=== PATIENT | female | born 1970 | race Two or more races ===

== ENCOUNTER 2021-02-05 19:53 | Emergency (ER) | payer BC, OTHER ==
[~2021-02-05] VITALS: Ht 149.9 cm; Wt 59.9 kg
[2021-02-05] MEDS ORDERED: ACETAMINOPHEN 500 MG TAB PO ONE (20:30)
[2021-02-05 20:40] VITALS: BP 143/58
== END 2021-02-05 21:10 | disposition home or self-care (01) ==
LOC: EEVIPCON 19:53 → ER 19:53
DX: S09.90XA Unspecified injury of head, initial encounter (principal); Z90.49 Acquired absence of other specified parts of digestive tract; Z90.710 Acquired absence of both cervix and uterus; Z87.891 Personal history of nicotine dependence; Y08.89XA Assault by other specified means, initial encounter; Y93.89 Activity, other specified; Y92.89 Other specified places as the place of occurrence of the external cause; Y99.8 Other external cause status
CPT/HCPCS: 70480; 70486